=== PATIENT | male | born 1975 | race Caucasian/White ===

== ENCOUNTER 2017-07-15 16:58 | Emergency (ER) | payer MEDICARE, MEDICAID ==
[~2017-07-15 16:58] MED LIST: CARB200T PO; CARB200T2 PO; DIVA125T2 PO; DIVA500T2 PO; MORP10CA7 PO
== END 2017-07-15 17:30 | disposition left against medical advice (07) ==
LOC: ED 17:15
DX: G40.409 Other generalized epilepsy and epileptic syndromes, not intractable, without status epilepticus (principal)
CPT/HCPCS: 99283

== ENCOUNTER 2017-08-29 18:02 | Emergency (ER) | payer OTHER, MEDICAID ==
[~2017-08-29] VITALS: Ht 188 cm; Wt 80.0 kg
[2017-08-29 18:28] LABS: HEMATOCRIT 41.3 % (39.2-51.8); HEMOGLOBIN 13.7 g/dL (13.7-18.0); WHITE BLOOD COUNT 6.2 x10^3/uL (3.4-10)
[2017-08-29] MEDS ORDERED: SODIUM CHLORIDE 0.9% 1,000ML IVBOLUS ONE (18:30)
[2017-08-29] MEDS ORDERED: PLEASE ENTER HEIGHT AND WEIGHT MC SCH (18:30)
[2017-08-29 18:37] LABS: BLOOD UREA NITROGEN 21 mg/dL (7-18)
[2017-08-29] MEDS ORDERED: LORazepam 2 MG/ML, 1ML ONE (19:38)
[2017-08-29] MEDS ORDERED: LORazepam 2 MG/ML, 1ML IVPush ONE (20:00)
[2017-08-29] MEDS ORDERED: LEVETIRACETAM 1,000 MG in SODIUM CHLORIDE 0.9% 100 ML IV ONE (20:00)
[2017-08-29 20:57] VITALS: BP 122/72
== END 2017-08-29 19:21 | disposition home or self-care (01) ==
LOC: ED 18:11
DX: G40.909 Epilepsy, unspecified, not intractable, without status epilepticus (principal)
CPT/HCPCS: 36415; 80048; 82040; 85025; 96365; 96375; 99284; J1953; J2060; J7030

== ENCOUNTER 2017-09-05 16:37 | Emergency (ER) | payer OTHER, MEDICAID ==
[~2017-09-05] VITALS: Ht 177.8 cm; Wt 70.0 kg
[2017-09-05 16:46] VITALS: BP 110/73
[2017-09-05 18:07] LABS: HIV 1&2 ANTIBODY SCREEN Nonreactive (Nonreactive); HIV-1 p24 ANTIGEN Nonreactive (Nonreactive)
[2017-09-05 18:14] LABS: HEP B SURF. AB < 3.1 mIU/mL (0.0-10.0)
== END 2017-09-05 18:02 | disposition home or self-care (01) ==
LOC: ED 17:56
DX: Z11.4 Encounter for screening for human immunodeficiency virus [HIV] (principal); S61.439A Puncture wound without foreign body of unspecified hand, initial encounter; Z11.59 Encounter for screening for other viral diseases; W46.0XXA Contact with hypodermic needle, initial encounter; Y93.89 Activity, other specified; Y99.8 Other external cause status; Y92.148 Other place in prison as the place of occurrence of the external cause
CPT/HCPCS: 36415; 86703; 86705; 86706; 86803; 87340; 87521; 87899; 99284; G0435